=== PATIENT | female | born 1990 | race Caucasian/White ===

== ENCOUNTER 2016-11-02 21:26 | Emergency (ER) | payer MEDICAID, OTHER ==
[~2016-11-02] VITALS: Ht 162.6 cm; Wt 74.4 kg
[2016-11-02] MEDS ORDERED: ONDANSETRON ODT 4 MG ONE (21:57)
[2016-11-02] MEDS ORDERED: DIPH,PERTUSS(ACELL),TET VAC/PF 0.5 ML IM-VACC ONE ×2 (21:57→22:00)
[2016-11-02] MEDS ORDERED: LIDOCAINE 1%, 20ML ONE (21:57)
[2016-11-02] MEDS ORDERED: L.E.T SOLUTION TP ONE ×2 (21:57→22:00)
[2016-11-02] MEDS ORDERED: LIDOCAINE 1%, 20ML SQ ONE (22:00)
[2016-11-02] MEDS ORDERED: ONDANSETRON ODT 4 MG PO ONE (22:00)
[2016-11-02] MEDS ORDERED: HYDROcodone/APAP 5/325 TABLET ONE (23:14)
[2016-11-02] MEDS ORDERED: HYDROcodone/APAP 5/325 TABLET PO ONE (23:30)
[2016-11-03] VITALS: BP 122/78
== END 2016-11-03 00:02 | disposition home or self-care (01) ==
LOC: ED 23:50
DX: S01.81XA Laceration without foreign body of other part of head, initial encounter (principal); X58.XXXA Exposure to other specified factors, initial encounter; Y93.89 Activity, other specified; Y99.8 Other external cause status; Y92.89 Other specified places as the place of occurrence of the external cause
CPT/HCPCS: 12052; 70450; 90471; 90715; 99284; Q0162